=== PATIENT | female | born 1945 | race Caucasian/White ===

== ENCOUNTER → 2024-01-30 11:24 | Outpatient (REF) | payer BC, OTHER, SELFPAY ==
[2024-01-30 13:05] LABS: TSH 8.99 uIU/ml (0.47-4.68)
== END ==
LOC: OLABN 11:24
PROVIDERS: ATTENDING PHYSICIAN Student in an Organized Health Care Education/Training Program
DX: E03.9 Hypothyroidism, unspecified (principal)
CPT/HCPCS: 36415; 84443

== ENCOUNTER → 2024-03-11 09:07 | Outpatient (REF) | payer BC, OTHER, SELFPAY ==
[2024-03-11 11:20] LABS: TSH 5.91 uIU/ml (0.47-4.68)
== END ==
LOC: OLABN 09:07
PROVIDERS: ATTENDING PHYSICIAN Student in an Organized Health Care Education/Training Program
DX: E03.9 Hypothyroidism, unspecified (principal)
CPT/HCPCS: 84443

== ENCOUNTER → 2024-04-23 07:57 | Outpatient (REF) | payer BC, OTHER, SELFPAY ==
[2024-04-23 08:53] LABS: TSH 0.28 uIU/ml (0.47-4.68)
== END ==
LOC: OLABN 07:57
PROVIDERS: ATTENDING PHYSICIAN Student in an Organized Health Care Education/Training Program
DX: E03.9 Hypothyroidism, unspecified (principal)
CPT/HCPCS: 36415; 84443

== ENCOUNTER → 2024-05-21 10:42 | Outpatient (REF) | payer BC, OTHER, SELFPAY ==
[2024-05-21 12:31] LABS: TSH 8.18 uIU/ml (0.47-4.68)
== END ==
LOC: OLABN 10:42
PROVIDERS: ATTENDING PHYSICIAN Student in an Organized Health Care Education/Training Program
DX: E03.9 Hypothyroidism, unspecified (principal)
CPT/HCPCS: 36415; 84443

== ENCOUNTER → 2024-07-02 10:20 | Outpatient (REF) | payer BC, OTHER, SELFPAY ==
[2024-07-02 13:11] LABS: TSH 1.52 uIU/ml (0.47-4.68)
== END ==
LOC: OLABN 10:20
PROVIDERS: ATTENDING PHYSICIAN Student in an Organized Health Care Education/Training Program
DX: E03.9 Hypothyroidism, unspecified (principal)
CPT/HCPCS: 36415; 84443

== ENCOUNTER → 2024-07-30 10:45 | Outpatient (REF) | payer BC, OTHER, SELFPAY ==
[2024-07-30 12:02] LABS: TSH 0.92 uIU/ml (0.47-4.68)
== END ==
LOC: OLABN 10:45
PROVIDERS: ATTENDING PHYSICIAN Student in an Organized Health Care Education/Training Program
DX: E03.9 Hypothyroidism, unspecified (principal)
CPT/HCPCS: 36415; 84443

== ENCOUNTER → 2025-01-28 11:12 | Outpatient (REF) | payer BC, OTHER, SELFPAY ==
[2025-01-28 12:22] LABS: TSH 0.38 uIU/ml (0.47-4.68)
== END ==
LOC: OLABN 11:12
PROVIDERS: ATTENDING PHYSICIAN Student in an Organized Health Care Education/Training Program
DX: E03.9 Hypothyroidism, unspecified (principal)
CPT/HCPCS: 36415; 84443

== ENCOUNTER → 2025-02-24 10:33 | Outpatient (REF) | payer BC, OTHER, SELFPAY ==
[2025-02-24 13:00] LABS: TSH 6.90 uIU/ml (0.47-4.68)
== END ==
LOC: OLABN 10:33
PROVIDERS: ATTENDING PHYSICIAN Student in an Organized Health Care Education/Training Program
DX: E03.9 Hypothyroidism, unspecified (principal)
CPT/HCPCS: 36415; 84443

== ENCOUNTER 2025-03-21 10:06 | Emergency (ER) | payer BC, OTHER, SELFPAY ==
[2025-03-21 10:08] VITALS: BP 100/47
--- NOTE | 2025-03-21 10:26 | ED.GENMED ---
History of Present Illness
General
Chief Complaint: Fall
Source: records, ambulance crew and snf
Exam Limitations: dementia
Time Seen by Provider: 03/21/25 10:10
Nursing documentation reviewed up to this point in time: agreed with
History of Present Illness
History of Present Illness:
80-year-old female with past medical history as noted significant for end-stage dementia completely nonverbal and wheelchair-bound, dependent for all ADLs presents to the ER from [facility] via EMS for evaluation after an
unwitnessed fall. Patient cannot participate in history due to baseline cognitive status. History obtained from snf as well as EMS. Patient was in wheelchair�she apparently tends to like to shift around in her chair per staff�and staff
heard her fall out of the wheelchair. Staff was on the scene within a minute they report and found her on the ground with bruising on her head. 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
tonic-clonic seizures and there was nothing to suggest seizure today. At baseline she is nonverbal and cannot make her needs known�she was at this baseline per staff after fall but given signs of trauma was sent to the ER for assessment. Review of
her medication list shows that she is not on any blood thinners.
Past History
Past History
ED Past Medical History: GERD, HTN, Hypothyroidism and Other (Inflammatory bowel disease, arthritis, back pain, mini stroke, hiatal hernia, dementia)
ED Past Surgical History: Gynecological and Other (History of foot surgery, kidney stent in 2006, carpal tunnel surgery)
Social History
Tobacco: Non-smoker
Alcohol: Daily
Personal:
Living: snf
Employment: Retired
Review of Systems
Review of Systems
Unable to obtain full review of systems at this time due to: dementia
All Other Systems: Not applicable
Phy Exam
Physical Exam
Physical Exam:
General: Laying in bed lethargic and chronically ill-appearing, nonverbal, winces to painful stimuli and will occasionally moan�this is her baseline according to staff from snf
Head: Normocephalic, patient has contusion of the left forehead with some slight periorbital ecchymosis on the left
Eyes: Conjunctiva normal, pupils are equal round and reactive to light bilaterally
Throat: Airway intact, tongue atraumatic
Neck: Trachea midline, no apparent tenderness in the cervical spine
Back: No signs of trauma to the back or flank, no apparent tenderness in the thoracic or lumbar region and no spinal step-offs
Lungs: Clear to auscultation bilaterally, no wheezing, rales, rhonchi
Heart: Regular rate and rhythm, no murmurs, gallops, or rubs�heart rate 100 in triage, heart rate in the 70s during my assessment; no apparent chest wall tenderness, no crepitus or instability
Abd: Soft, non distended, no apparent tenderness, no bruising
Neuro: Nonverbal, contracted
Extremities: Patient is extremities are contracted; she has some bruising to the left knee and minor abrasion to the knee, no other signs of trauma to the extremities, does not seem to have pain on passive range of motion in the arms or legs,
extremities are warm and well-perfused
Scores
Heart Failure Risk
Heart Failure Risk Score: Not Applicable
Heart Score for Chest Pain Patients
STEMI patient?: Not applicable
Withdrawal Assessment of Alcohol
Withdrawal Assessment Completed?: Not applicable
Course
Orders/Labs/Results
Orders:
Orders
03/21/25 10:11
CT Cervical Spine W/o Iv Contr Urgent
Comment:
Reason For Exam: fall with headstrike
CT Head W/o Iv Contrast Urgent
Comment:
Reason For Exam: fall with headstrike
03/21/25 10:26
CR Knee - Left 1 Or 2 Views Urgent
Reason For Exam: bruising s/p fall
Vital Signs
Initial and Last Documented VS:
Initial Vital Signs
Temp Pulse Resp BP Pulse Ox
36.6 C 100 18 100/47 98
03/21/25 10:08 03/21/25 10:08 03/21/25 10:08 03/21/25 10:08 03/21/25 10:08
Last Documented Vital Signs
Temp Pulse Resp BP Pulse Ox
36.6 C 100 18 100/47 98
03/21/25 10:08 03/21/25 10:08 03/21/25 10:08 03/21/25 10:08 03/21/25 10:31
MDM/Problems Addressed
Differential Diagnosis Includes:
Traumatic head injury--brain bleed, forehead contusion, concussion
Knee bruising�contusion, fracture, internal derangement
MDM/Problems Addressed:
80-year-old female presents after an unwitnessed fall as described above. She is not on blood thinners. End-stage dementia baseline nonverbal. Plan to check CT head and cervical spine. X-ray of the left knee. Reassess after the above.
CT head and cervical spine negative for any acute abnormalities. X-ray of the knee no acute abnormality. Stable for discharge back to snf. Discussed with snf staff and patient's .
Chronic conditions affecting care:
End-stage dementia
*Radiology
Radiology exam reviewed: radiology read reviewed
*Pulse Oximetry
SaO2: 98
Oxygen Mode of Delivery: Room air
Patient hypoxic: no (98%)
*Critical Care Note
Total Time (30-74mins, 75-104mins- exclusive of procedures): Not Applicable
Data Reviewed
Review of Other/Old Records Reveals: Records
Source: records, ambulance crew, snf and snf records
Patient Management
Discussion with other providers: [facility] staff (Discussed directly with snf staff)
ED Attending Note
-
Portions of this chart may have been created with voice recognition software.� Occasional wrong word or��sound alike� substitutions may have occurred due to the inherent limitations of voice recognition software.
Discharge Plan
Departure
Discharge Problem:
Forehead contusion, Contusion of knee
Instructions: Contusion (DC)
Prescriptions:
No Action
acetaminophen 325 mg Tablet
650 mg PO Q4H PRN (Reason: mild pain/fever>100.4)
trazodone 50 mg Tablet
25 mg PO BID
olanzapine 2.5 mg Tablet
2.5 mg PO HS
magnesium hydroxide [Milk of Magnesia] 400 mg/5 mL Suspension
30 ml PO HS PRN (Reason: lack of bm)
bisacodyl [Dulcolax (bisacodyl)] 10 mg Suppository
10 mg OR DAILYPRN PRN (Reason: if mom ineffective)
Saccharomyces boulardii [Probiotic (S.boulardii)] 250 mg Capsule
250 mg PO [id number]
Rx Instructions:
as per snf patient started 07/23/22
levetiracetam 500 mg/5 mL (5 mL) Solution
250 mg PO BID@0800,2100 Qty: 0 0RF
Referrals:
Miller Snyder DO [Family Provider, Family Practice] - Follow up in 2-3 days
Activity Restrictions/Additional Instructions:
Thank you for visiting the Emergency Department at [facility].
1. Please schedule a follow up appointment as directed. Call first thing tomorrow morning to make an appointment.
2. If indicated, please take your medications as instructed and indicated on discharge paperwork.
3. If any of your symptoms do not improve, or persist, or become more severe within 6-12 hours, please return to the emergency department for further care.
4. Please return to the emergency department if you develop a headache, neck pain/stiffness, fever greater than 100.4F, chest pain, shortness of breath, persistent nausea, vomiting, slurred speech, difficulty walking, numbness/tingling, weakness,
signs of infection or any other symptoms that are worrisome to you.
Please call [phone] if you have any questions.
Interventions
Interventions:
*General Assessment Last Done: 03/21/25 10:08
ED-Musculoskeletal Assessment Last Done: 03/21/25 10:08
ED- Neurological Assessment Last Done: 03/21/25 10:08
ED-Skin Assessment Last Done: 03/21/25 10:08
Discharge Date and Time
Print Language: AUSTRIAN
[2025-03-21 12:00] VITALS: BP 94/79
[2025-03-21 13:00] VITALS: BP 90/56
[2025-03-21 13:46] VITALS: BP 105/45
== END 2025-03-21 14:09 ==
LOC: EMR 10:06
PROVIDERS: EMERGENCY PHYSICIAN Emergency Medicine; FAMILY PHYSICIAN Student in an Organized Health Care Education/Training Program
DX: S00.83XA Contusion of other part of head, initial encounter (principal); S80.02XA Contusion of left knee, initial encounter; W05.0XXA Fall from non-moving wheelchair, initial encounter; F03.90 Unspecified dementia, unspecified severity, without behavioral disturbance, psychotic disturbance, mood disturbance, and anxiety; E03.9 Hypothyroidism, unspecified; Z86.73 Personal history of transient ischemic attack (TIA), and cerebral infarction without residual deficits; Z99.3 Dependence on wheelchair
CPT/HCPCS: 99284; 70450; 72125; 73560

== ENCOUNTER → 2025-04-07 09:54 | Outpatient (REF) | payer BC, OTHER, SELFPAY ==
[2025-04-07 12:27] LABS: TSH 4.23 uIU/ml (0.47-4.68)
== END ==
LOC: OLABN 09:54
PROVIDERS: ATTENDING PHYSICIAN Student in an Organized Health Care Education/Training Program
DX: E03.9 Hypothyroidism, unspecified (principal)
CPT/HCPCS: 36415; 84443

== ENCOUNTER → 2025-07-29 11:39 | Outpatient (REF) | payer BC, OTHER, SELFPAY ==
[2025-07-29 14:15] LABS: TSH 1.92 uIU/ml (0.47-4.68)
== END ==
LOC: OLABN 11:39
PROVIDERS: ATTENDING PHYSICIAN Student in an Organized Health Care Education/Training Program
DX: E03.9 Hypothyroidism, unspecified (principal)
CPT/HCPCS: 36415; 84443